=== PATIENT | male | born 1970 | race Caucasian/White ===

== ENCOUNTER 2017-09-15 09:14 | Outpatient (CLI) | payer BC ==
--- NOTE | 2017-09-15 13:30 | MRI ---
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 The patient is having decreased range of bala on. COMPARISON: None. FINDINGS: There is subtle increased T2 signal involving the capsule within the axillary pouch. Mild synovial p roliferation is seen within the coracoid recess. There is mild tendinosis of the supraspinatus witho ut evidence of a discrete tear. There is moderate AC joint osteoarthrosis and reactive edema in the acromial process and distal clavicle. No muscular atrophy is evident. No enlarged lymph nodes are e vident. The biceps tendon is located. No definite paralabral cyst is evident. Superior glenoid lab rum and biceps anchor complex appear within normal limits. IMPRESSION: 1. Findings raising suspicion for mild adhesive capsulitis. There is some increased T2 signal invol ving the capsule in the axillary pouch, with some mild synovial proliferation seen within the subcora coid recess. 2. Mild tendinosis of the supraspinatus and infraspinatus. 3. Moderate acromioclavicular osteoarthrosis with reactive edema within the distal clavicle and acro mion. A grade 1 acromioclavicular sprain cannot be entirely excluded POS: [facility]
== END 2017-09-15 09:15 | disposition home or self-care (01) ==
LOC: SCSMRI 09:14
PROVIDERS: ATTEND Orthopaedic Surgery
DX: M25.512 Pain in left shoulder (principal); M75.02 Adhesive capsulitis of left shoulder; M67.814 Other specified disorders of tendon, left shoulder; M19.012 Primary osteoarthritis, left shoulder; R60.0 Localized edema

== ENCOUNTER 2019-03-21 14:47 | Emergency (ER) | payer BC ==
[2019-03-21] MEDS ORDERED: Morphine 4 MG/ML VIAL ONE ×2 (15:16→16:52)
[2019-03-21 15:26] LABS: #Basophils 0.1 thou/uL (0.0-0.2); #Eosinphils 0.1 thou/uL (0.0-0.7); #Lymphocytes 2.8 thou/uL (1.20-3.40); #Monocytes 0.6 thou/uL (0.11-0.59); #Neutrophils 4.2 thou/uL (1.40-6.50); %Basophils 1.4 % (0.0-1.0); %Eosinophils 0.9 % (0.0-10.0); %Monocytes 7.7 % (0.0-10.0); %Neutrophils 54.1 % (42.0-75.0); Hemoglobin 14.5 g/dL (14.0-18.0); Mean Corpuscular HGB CONC 34.1 g/dL (32.0-36.0); Mean Corpuscular Hemoglobin 30.4 pg (27.0-31.0); Mean Corpuscular Volume 89.2 fL (78.0-98.0); Mean Platelet Volume 7.3 fL (7.4-10.4); Platelet Count 285 thou/uL (130-400); RBC Distribution Width 10.7 % (11.5-14.5); Red Blood Cell (RBC) Count 4.77 mill/uL (4.70-6.10); White Blood Cell (WBC) Count 7.7 thou/uL (4.8-10.8)
[2019-03-21 15:34] LABS: PTT 22.1 SEC (22.9-36.1); Prothrombin Time 13.3 SEC (12.0-14.7)
[2019-03-21 15:42] LABS: ALT (SGPT) 35 U/L (8-55); AST (SGOT) 27 U/L (5-34); Albumin 4.7 g/dL (3.5-5.0); Alkaline Phosphatase 58 U/L (40-110); Anion Gap 18 mmol/L (10-20); BUN (Urea Nitrogen) 13 mg/dL (8.9-20.6); Bilirubin, Total 0.9 mg/dL (0.2-1.2); Calc. Creatinine Clearance 0 mL/min (70-130); Carbon Dioxide 22 mmol/L (22-29); Chloride 106 mmol/L (98-107); Estimated GFR-MDRD 67; Globulin 2.8 g/dL (2.4-3.5); Glucose 119 mg/dL (70-105); Lipase 32 U/L (8-78); Potassium 3.7 mmol/L (3.5-5.1); Protein, Total 7.5 g/dL (6.0-8.3); Sodium 142 mmol/L (136-145)
--- NOTE | 2019-03-21 15:56 | CT ---
EXAM: CT chest, abdomen and pelvis with IV contrast PROVIDED CLINICAL HISTORY: Trauma FINDINGS: The heart, pericardium and great vessels demonstrate no evidence for traumatic abnormality. Lungs are free of significant opacity. No pleural fluid or pneumothorax apparent. The solid abdominal organs demonstrate no evidence for traumatic abnormality. Fatty infiltration of t he liver is demonstrated. Bilateral nonobstructing renal calculi, largest on the right measuring 3 mm at the superior pole. No bowel dilatation, inflammatory fat stranding, free fluid or free air appa rent. The major vascular structures appear normal. The osseous structures demonstrate no acute abnormality. Thoracic and lumbar spine sagittal and coron al reconstructions demonstrate normal spinal alignment and maintenance of vertebral body heights. Degenerative changes are seen involving the left hip with 1 cm intra-articular body noted posteriorly . Right os acromiale. IMPRESSION: No evidence for traumatic abnormality.
--- NOTE | 2019-03-21 15:57 | CT ---
CT HEAD WITHOUT IV CONTRAST COMPARISON: None HISTORY: Trauma. Injury after falling [place]. TECHNIQUE: Axial CT imaging at 5 mm intervals from vertex through skull base without contrast FINDINGS: There is a low-density focus seen within the inferior aspect right basal ganglia which may represent a dilated perivascular space versus remote lacunar infarction. There is a calcification seen in the region of the tentorium on the left which is thought to be related to a dural-based calcification as opposed to a parenchymal calcification. There is no evidence of an acute infarction, hemorrhage, mass effect, or midline shift. The ventricular system is normal in size, shape, and position. Visualized paranasal sinuses are clear. Osseous structures appear intact.No depressed calvarial fracture is seen. IMPRESSION: 1. No acute intracranial abnormality demonstrated. 2. Dilated perivascular space versus remote lacunar infarction inferior right basal ganglia.
--- NOTE | 2019-03-21 15:58 | CT ---
EXAM: CT cervical spine PROVIDED CLINICAL HISTORY: Trauma COMPARISON: None FINDINGS: No evidence for fracture or traumatic subluxation. No prevertebral soft tissue swelling apparent. Vi sualized lung apices appear clear. Cervical degenerative changes are seen. IMPRESSION: No evidence for fracture or traumatic subluxation.
--- NOTE | 2019-03-21 16:02 | RAD ---
Exam: XR Tib Fib Lt Leg 2 View HISTORY: Injury to distal left lower extremity. COMPARISON: None FINDINGS: Lucent centered calcifications are seen overlying the subcutaneous soft tissues medially at the level of the mid diaphysis of the tibia probably due to phleboliths. No acute fracture, dislocation, or other acute osseous abnormality is identified. A plantar calcaneal enthesophyte is seen. IMPRESSION: No acute osseous abnormality is identified.
[2019-03-21] MEDS ORDERED: Adacel (T-DAP) 0.5 ML SYRINGE ONE (16:09)
--- NOTE | 2019-03-21 16:09 | RAD ---
XR Humerus Lt 2 View STANDARD: 03/21/2019 3:03 PM CLINICAL INDICATION: Injury, pain COMPARISON: None. FINDINGS: Fracture:Mildly displaced midshaft left humeral fracture is present with mild override of fracture fr agments and approximately 1 cortex width lateral displacement of major distal fracture fragment. Arthropathy: Moderate left AC joint osteoarthritis Incidental findings:Sclerotic foci of left humeral head may relate to bone islands. IMPRESSION: 1. Mildly displaced mid diaphyseal fracture of left humerus.
== END 2019-03-21 18:29 | disposition home or self-care (01) ==
LOC: SCSER 14:47
DX: S42.302A Unspecified fracture of shaft of humerus, left arm, initial encounter for closed fracture (principal); S80.812A Abrasion, left lower leg, initial encounter; I10 Essential (primary) hypertension; Z79.899 Other long term (current) drug therapy; V80.010A Animal-rider injured by fall from or being thrown from horse in noncollision accident, initial encounter
CPT/HCPCS: 29105; 70450; 71260; 72125; 74177; 80053; 82550; 83690; 85025; 85610; 85730; 86850; 86900; 86901; 90471; 90715; 96360; 96361; 96374; 96376; J2270

== ENCOUNTER 2019-04-21 13:23 | Outpatient (CLI) | payer BC ==
[~2019-04-21 13:23] MED LIST: Iopamidol 370 76% 100 ML VIAL ONE
--- NOTE | 2019-04-21 15:30 | CT ---
CT ABDOMEN AND PELVIS WITH IV CONTRAST: HISTORY: Abdominal pain. COMPARISON: 03/21/2019. FINDINGS: Lung bases are clear. Liver remains diffusely hypodense. Tiny nonspecific low-density lesion is not ed within the lateral segment left liver lobe and may be related to timing of contrast bolus. The sm all nonobstructing calcifications of the nondilated right renal collecting system are stable, measuri ng up to 0.4 cm greatest diameter. Retroaortic left renal vein is noted. No free air or free fluid. No evidence of bowel obstruction. Appendix is not inflamed. Old left posterolateral rib fractures . IMPRESSION: 1. Small nonobstructing right renal calculi. 2. Hepatosteatosis. 3. Chronic-type findings are stable. POS: [facility]
== END 2019-04-21 13:24 | disposition home or self-care (01) ==
LOC: SCSCT 13:23
PROVIDERS: ATTEND Internal Medicine
DX: R10.9 Unspecified abdominal pain (principal); N20.0 Calculus of kidney; K76.0 Fatty (change of) liver, not elsewhere classified
CPT/HCPCS: 74177; Q9967